=== PATIENT | female | born 2000 | race Caucasian/White ===

== ENCOUNTER 2023-08-30 20:59 | Emergency (ER) | payer OTHER, SELFPAY ==
--- NOTE | ~2023-08-30 | XR_ITS ---
EXAMINATION: XR chest 2V DATE: 08/30/2023 21:29 INDICATION: Chest pain. TECHNIQUE: Frontal and lateral views of the chest were obtained. COMPARISON: None. FINDINGS: There is no pneumonia, pleural effusion, or pneumothorax. The heart size is normal. IMPRESSION: 1. No acute cardiopulmonary disease. Reviewed, dictated and finalized at location E. [employer]STRU[employer]
--- NOTE | 2023-08-30 21:00 | ECG_ITS ---
Measurements Intervals [place] Rate: 111 P: 77 MT: 128 QRS: 92 QRSD: 92 T: -3 QT: 318 QTc: 433 Interpretive Statements SINUS TACHYCARDIA POSSIBLE LEFT ATRIAL ENLARGEMENT [-0.1mV P WAVE IN V1/V2] BORDERLINE RIGHT AXIS DEVIATION [QRS AXIS > 90] NONSPECIFIC ST AND T-WAVE ABNORMALITY NO PREVIOUS ECG AVAILABLE FOR COMPARISON Electronically Signed On 08-31-2023 11:12:23 STOCK SPECULATOR by Radha Wills M.D.
[2023-08-30 21:10] VITALS: BP 134/74; PULSE 109; RESP 15; TEMP 36.6; O2SAT 100
[2023-08-30 21:17] LABS: Basophils Absolute Auto 0.1 K/mm3 (0.0-0.1); Basophils Percent Auto 0.6 % (0.2-1.2); Eosinophils Absolute Auto 0.2 K/mm3 (0-0.3); Eosinophils Percent Auto 1.8 % (0-4.4); Hematocrit 40.8 % (37.0-47.0); Hemoglobin 14.1 g/dL (12.0-15.0); Immature Granulocyte Absolute 0.03 K/mm3 (0.00-0.031); Immature Granulocyte Percent A 0.3 % (0-0.5); Lymphocytes Absolute Auto 2.89 K/mm3 (0.9-3.2); Lymphocytes Percent Auto 29.5 % (18.3-44.2); Mean Corpuscular HGB Conc 34.6 g/dl (32-36); Mean Corpuscular Hemoglobin 31.5 pg (26-34); Mean Corpuscular Volume 91.3 fl (80-100); Monocytes Absolute Auto 0.6 K/mm3 (0.1-0.6); Monocytes Percent Auto 5.8 % (2.6-8.5); Neutrophils Absolute Auto 6.1 K/mm3 (1.3-6.7); Platelet Count Result 230 k/mm3 (150-375); Red Blood Count 4.47 M/mm3 (4.2-5.4); Red Cell Distribution Width 12.9 % (11.5-14.5); White Blood Count 9.8 K/mm3 (4.5-10.0)
[2023-08-30 21:26] LABS: Alanine Aminotransferase 22 U/L (6-35); Albumin Level 4.5 g/dL (3.5-5.1); Alkaline Phosphatase 50 U/L (38-126); Anion Gap 6 mmol/L (8-16); Aspartate Amino Transferase 27 U/L (14-36); Bilirubin,Total 0.7 mg/dL (0.2-1.3); Blood Urea Nitrogen 15 mg/dL (7-17); Calcium 9.3 mg/dL (8.4-10.2); Carbon Dioxide 28 mmol/L (22-30); Chloride 103 mmol/L (98-107); Estimated CRCL calculation 98 ml/min; Estimated Glomerular Filt Rate > 60; Glucose 94 mg/dL (65-110); Lipase 71 U/L (23-300); Potassium 3.5 mmol/L (3.4-5.0); Sodium 137 mmol/L (137-145)
[2023-08-30 21:27] LABS: INR 1.1; Partial Thromboplastin Time 31.5 SECONDS (22.3-36.8); Prothrombin Time 14.5 Seconds (11.1-14.7)
[2023-08-30 21:37] LABS: Troponin I 0.017 ng/mL (0.000-0.034)
[2023-08-30 23:12] VITALS: PULSE 98
[2023-08-30 23:13] VITALS: BP 141/88; PULSE 100; RESP 17; O2SAT 100
[2023-08-30] MEDS: Please add drug allergy info to patient profile. 1 EACH XX (23:20)
[2023-08-30] MEDS: ASPIRIN 81 MG CHEWABLE TABLET 324 MG PO (23:43)
[2023-08-31] MEDS: Please add drug allergy info to patient profile. 1 EACH XX (00:03)
--- NOTE | 2023-08-31 00:20 | ED.CHESTPAIN ---
HPI - Chest Pain General Chief Complaint: Chest Pain Stated Complaint: chest pain and racing x 2 weeks Time Seen by Provider: 08/30/23 23:21 Source: patient Mode of arrival: ambulatory Limitations: no limitations History of Present Illness HPI narrative: Patient is a 22-year-old female who presents ED with report of chest pain. Patient reports having intermittent episodes of midsternal chest pain for the last 2 weeks. States episodes occur at random, lasting anywhere from 1-3 hours at a time, resolve on their own. Denies any aggravating or alleviating factors. Denies aggravation with exertion. States she has also felt her heart racing at times, up to 115 beats per minute. Reports very mild occasional shortness of breath. Denies dyspnea with exertion. Denies lower extremity pain or swelling. Denies history of blood clots. Denies recent cough or cold symptoms. Denies fevers. Denies abdominal pain, nausea, vomiting, dizziness, lightheadedness. Related Data Home Medications Medication Instructions Recorded Confirmed No Home Medications 08/31/23 Allergies Allergy/AdvReac Type Severity Reaction Status Date / Time No Known Allergies Allergy Verified 08/30/23 23:44 Review of Systems Review of Systems: CONSTITUTIONAL: Denies fever, chills, or sweats. CARDIOVASCULAR: See HPI. RESPIRATORY: See HPI. GASTROINTESTINAL: Denies abdominal pain, nausea, vomiting. All systems reviewed & are unremarkable except as noted in HPI and below Exam Narrative: GENERAL: Well appearing, thin, non-toxic, in no acute distress. HEAD: Normocephalic, atraumatic. RESPIRATORY: Airway patent, respirations nonlabored. Clear to auscultation bilaterally, no rales, rhonchi, wheezing. No focal lung sounds. CARDIOVASCULAR: Borderline tachycardic with regular rhythm without murmurs, rubs, or gallops. ABDOMINAL: Soft, nontender, nondistended. Normoactive BS. MUSCULOSKELETAL: Moves all extremities. No gross deformities. No chest wall tenderness to palpation. No lower extremity edema. No calf tenderness. SKIN: Warm, dry, normal color. NEURO: A&O X3. Speech clear. Cranial nerves II-XII grossly intact. Steady gait. No ataxic movements. PSYCHIATRIC: Appropriate mood and affect. Normal interaction. Course Vital Signs Vital signs: Vital Signs Temperature 97.9 F 08/30/23 21:10 Pulse Rate 109 H 08/30/23 21:10 Respiratory Rate 15 08/30/23 21:10 Blood Pressure 134/74 08/30/23 21:10 Pulse Oximetry 100 08/30/23 21:10 Temperature 97.9 F 08/30/23 21:10 Pulse Rate 98 08/31/23 01:51 Respiratory Rate 18 08/31/23 01:51 Blood Pressure 131/75 08/31/23 01:51 Pulse Oximetry 100 08/31/23 01:51 MDM - Chest Pain MDM Narrative Medical decision making narrative: Patient presented to ED with 2 week history of intermittent chest pain, palpitations, mild shortness of breath. Symptoms seem atypical, no aggravation with exertion. No significant inciting or alleviating factors to the pain. Vitals stable upon arrival. Patient borderline tachycardic. No acute distress. Oxygen stable on room air. Exam unremarkable. Basic laboratory studies reassuring. No significant abnormalities. TSH WNL. Magnesium WNL. EKG with sinus tachycardia, nonspecific ST changes. No acute ST elevation or depression. Baseline troponin 0.017. Will obtain 3 hour. Chest x-ray clear. D-dimer WNL. No evidence of DVT on exam. Patient otherwise low risk Wells score. 3Hr troponin 0.014. Discussed lab and imaging findings with patient and overall reassuring w/u. She has remained stable throughout ED stay. She will be discharged at this time. Discussed f/u with Cardiology as an outpatient for possible Holter monitor. Discussed f/u with PCP as well. Patient given strict return precautions. Patient agrees with plan. Feels comfortable with discharge home. D/C in stable condition. Medical Records Data Attestation: I reviewed the patient's medical rec
[2023-08-31 01:12] LABS: Magnesium 2.2 mg/dL (1.6-2.3)
[2023-08-31 01:22] LABS: D Dimer 0.43 ug/mL (<0.48)
[2023-08-31 01:25] LABS: Troponin I 0.014 ng/mL (0.000-0.034)
[2023-08-31 01:51] VITALS: BP 131/75; PULSE 98; RESP 18; O2SAT 100
--- NOTE | 2023-08-31 09:45 | ECG_ITS ---
Measurements Intervals [place] Rate: 101 P: 26 AR: 151 QRS: 84 QRSD: 89 T: 20 QT: 336 QTc: 437 Interpretive Statements SINUS TACHYCARDIA POSSIBLE LEFT ATRIAL ENLARGEMENT NONSPECIFIC ST AND T-WAVE ABNORMALITY COMPARED TO ECG 08/30/2023 21:08:14 NO SIGNIFICANT CHANGES Electronically Signed On 08-31-2023 11:23:02 PHOTOGRAPHER by Radha Wills M.D.
== END 2023-08-31 02:30 | disposition home or self-care (01) ==
PROVIDERS: Emergency Medicine; Emergency Provider Physician Assistant; PCP Family Medicine
DX: R00.2 Palpitations (principal); R07.89 Other chest pain
CPT/HCPCS: 36415; 71046; 80053; 83690; 83735; 84443; 84484; 85025; 85380; 85610; 85730; 93005; 99284; A9270